=== PATIENT | male | born 2000 | race African-American/Black ===

== ENCOUNTER 2022-08-24 00:32 | Emergency (ER) | payer SELFPAY ==
[2022-08-24 00:50] VITALS: BP 122/97; PULSE 62; RESP 18; TEMP 37.2; O2SAT 98; BMI 29.8
--- NOTE | 2022-08-24 01:14 | ED_ITS ---
HPI - Skin/Abscess/Foreign Bdy General Chief complaint: Skin/Abscess/Foreign Body Stated complaint: LUMPS- COLD Time Seen by Provider: 08/24/22 01:14 Source: patient Mode of arrival: walk-in Limitations: no limitations History of Present Illness HPI narrative: This 22-year-old male presents for evaluation of an abscess or boil to his right buttock. It is been present for the past 2-3 days. He has a history of similar symptoms in the past. He has not had any fever. He states he has been using a warm towel to the area but he feels like it is making it worse. There has not been any drainage and he requests that I open it up. complaint: Reports abscess/boil (Right buttock) Onset (ago): day(s) (2-3) Location: Reports buttocks Severity: moderate Quality: Reports aching and constant Pain Consistency: Reports constant Relieving factors: Reports none Exacerbating factors: Reports movement Associated symptoms: Reports denies other symptoms Related Data Home Medications Medication Instructions Recorded Confirmed No Known Home Medications 08/24/22 08/24/22 Allergies Allergy/AdvReac Type Severity Reaction Status Date / Time No Known Drug Allergies Allergy Verified 08/24/22 00:54 Review of Systems ROS Status of ROS 10 or more systems reviewed and unremarkable except as noted in history and below PFSH PFSH Social History Smoking status: Never smoker Exam Constitutional Vital Signs - 24 hr 08/24/22 00:50 Temperature 98.9 F Pulse Rate [Monitor] 62 Respiratory Rate 18 Blood Pressure [Right Arm] 122/97 H Pulse Oximetry 98 Oxygen Delivery Method Room Air Documenting provider has reviewed patient's vital signs: yes Common normals: no apparent distress, average body habitus and oriented x3 Exam limitations: altered mental status General appearance: cooperative and comfortable (Nontoxic but uncomfortable appearing -[place] male, no distress) HENMT Common normals: normocephalic and head/scalp atraumatic Chest Common normals: inspection of chest normal Respiratory Common normals: normal respiratory effort, no retractions, no use of accessory muscles and clear to auscultation bilaterally Effort & inspection: able to speak in complete sentences Cardio Common normals: regular rate, regular rhythm, S1 normal heart sound, S2 normal heart sound, no gallops, no clicks, no murmurs and no rub GI Common normals: Normal to inspection, nondistended, normoactive bowel sounds present, soft to palpation and non-tender Other: There is approximately 3 cm firm, tender nodule in the medial aspect of the right buttock, there is a less than 1 cm area of fluctuance in the center of this firm indurated area. No drainage noted. This does not approximate the rectum Back & Pelvis Common normals: thoracic and lumbar spine normal to inspection, no thoracic nor lumbar tenderness and thoraco-lumbar ROM normal Pelvis: buttock abnormal (Right buttock abscess as previously described) Extremity Common normals: normal to inspection, full ROM and normal capillary refill Neuro Common normals: oriented x3 Psych Common normals: mental status grossly normal, thought process normal and cooperative Course Vital Signs Vital signs: Vital Signs Temperature 98.9 F 08/24/22 00:50 Pulse Rate 62 08/24/22 00:50 Respiratory Rate 18 08/24/22 00:50 Blood Pressure 122/97 H 08/24/22 00:50 Pulse Oximetry 98 08/24/22 00:50 Oxygen Delivery Method Room Air 08/24/22 00:50 Temperature 98.9 F 08/24/22 00:50 Pulse Rate 62 08/24/22 00:50 Respiratory Rate 18 08/24/22 00:50 Blood Pressure 122/97 H 08/24/22 00:50 Pulse Oximetry 98 08/24/22 00:50 Oxygen Delivery Method Room Air 08/24/22 00:50 MDM - Skin/Abscess/Foreign Bdy MDM Narrative Medical decision making narrative: This 22-year-old male presents for evaluation of 2-3 days of developing abscess in his right buttock. He has had boils in his buttock area in the past and has several scarred areas. He states he has been using a warm towel to the area but it is not improving. He states he cannot sit on his buttocks due to the pain. He has not had a fever. He has an approximately 3 cm area of tender indurated area in the right medial buttock, this does not approximate the rectum. There is very minimal fluctuance in the center of the area that is not amenable to incision and drainage. I explained this to the patient. I offered to him an IV with fluids, some pain medication however he is driving and Toradol at all I was able to offer him as well as a dose of IV antibiotics. He declined this stating that he needs to go. He will be dispensed 2 Percocet and given a dose of Augmentin and discharged home with a prescription for Percocet and Augmentin. He agrees to do warm soaks several times a day to help bring this abscess to a head and I encouraged him to follow-up with his family physician in [place] or return to the emergency department for worsening symptoms, fever or if it should start to organize I explained to him that we may be able to open it at that time. Discharge Plan Discharge Chief Complaint: Skin/Abscess/Foreign Body Clinical Impression: Abscess of skin or subcutaneous tissue, Abscess of buttock, right Patient Disposition: Home, Self-Care Time of Disposition Decision: :23 Condition: Good Mode of Transportation: Private Vehicle Prescriptions / Home Meds: No Action No Known Home Medications Instructions: Abscess (ED) Additional Instructions: Augmentin - twice daily Percocet - 1 tablet every 6 hours as needed for pain Stand Alone Forms: Portal Instructions Referrals: Physician,Non-Staff, MD [Primary Care Provider] - 1 week (See PCP for recheck.) Discharge Date/Time: 08/24/22 02:08
== END 2022-08-24 02:08 | disposition home or self-care (01) ==
PROVIDERS: Emergency Provider Emergency Medicine
DX: L02.31 Cutaneous abscess of buttock (principal)
CPT/HCPCS: 99283

== ENCOUNTER 2022-08-25 22:19 | Emergency (ER) | payer SELFPAY ==
[2022-08-25 22:32] VITALS: BP 126/90; PULSE 102; RESP 16; TEMP 37.6; O2SAT 97; BMI 29.4
--- NOTE | 2022-08-25 23:05 | PC.NURSE ---
States here 2 days ago for same and had not filled his antibitics.
== END 2022-08-26 00:12 | disposition left against medical advice (07) ==
PROVIDERS: Emergency Provider Emergency Medicine
DX: Z53.21 Procedure and treatment not carried out due to patient leaving prior to being seen by health care provider (principal)

== ENCOUNTER 2023-04-30 19:31 | Emergency (ER) | payer SELFPAY ==
[2023-04-30 19:45] VITALS: BP 167/87; PULSE 71; RESP 16; TEMP 36.5; O2SAT 97; BMI 33.9
[2023-05-02 22:08] LABS: Neisseria gonorrhoeae, NAA Negative (Negative)
== END 2023-04-30 23:21 | disposition left against medical advice (07) ==
PROVIDERS: Emergency Provider Internal Medicine
DX: Z20.2 Contact with and (suspected) exposure to infections with a predominantly sexual mode of transmission (principal); Z53.21 Procedure and treatment not carried out due to patient leaving prior to being seen by health care provider
CPT/HCPCS: 87491; 87591